=== PATIENT | female | born 1955 | race African-American/Black ===

== ENCOUNTER → 2016-12-15 | Outpatient (CLI) | payer BC | LOC: RAD 15:58 | DX: M47.817 Spondylosis without myelopathy or radiculopathy, lumbosacral region (principal); R05 Cough ==

== ENCOUNTER → 2019-12-19 | Outpatient (CLI) | payer BC | LOC: ULTRA 08:36 | DX: K80.20 Calculus of gallbladder without cholecystitis without obstruction (principal); N28.89 Other specified disorders of kidney and ureter ==

== ENCOUNTER → 2020-01-19 | Outpatient (CLI) | payer BC | LOC: ULTRA 09:25 | DX: Z95.828 Presence of other vascular implants and grafts (principal) ==

== ENCOUNTER → 2021-06-25 | Outpatient (CLI) | payer BC | LOC: CAT 09:20 → ULTRA 10:30 → CAT 10:30 | PROVIDERS: ATTEND Family Medicine | DX: K80.20 Calculus of gallbladder without cholecystitis without obstruction (principal); N20.0 Calculus of kidney; J34.1 Cyst and mucocele of nose and nasal sinus; J32.8 Other chronic sinusitis ==

== ENCOUNTER → 2021-11-20 | Outpatient (CLI) | payer BC | LOC: SJCVCIMAG 10-30 08:57 | PROVIDERS: ATTEND Internal Medicine Cardiovascular Disease | DX: Z01.810 Encounter for preprocedural cardiovascular examination (principal); R00.0 Tachycardia, unspecified; I31.3 Pericardial effusion (noninflammatory); R07.9 Chest pain, unspecified; R93.1 Abnormal findings on diagnostic imaging of heart and coronary circulation; R00.2 Palpitations; E78.5 Hyperlipidemia, unspecified; I10 Essential (primary) hypertension; I71.4 Abdominal aortic aneurysm, without rupture; R06.00 Dyspnea, unspecified; R51.9 Headache, unspecified; Z79.899 Other long term (current) drug therapy; Z88.8 Allergy status to other drugs, medicaments and biological substances ==